=== PATIENT | female | born 1995 | race Caucasian/White ===

== ENCOUNTER 2016-11-08 09:16 | Emergency (ER) | payer BC ==
[~2016-11-08 09:16] MED LIST: BUPR75TA5 PO; FAMO-63 PO; ONDA8TAB9 PO; PARO40TA61 PO
[2016-11-08 09:18] VITALS: BP 158/90
[2016-11-08] MEDS ORDERED: NITR100C62 PO (09:46)
--- NOTE | 2016-11-08 09:47 | PHYS DOC ---
Past History Past Medical History: Anxiety, Asthma Past Surgical History: No Surgical History Alcohol Use: None Drug Use: None Adult General Chief Complaint Chief Complaint: PAIN ON URINATION HPI HPI 39-year-old female presenting to the emergency department today with polyuria dysuria. She reports symptoms over the past 3 weeks. The pain is sharp cramping sensation in the suprapubic region. She denies any vomiting or fevers. The pain is nonradiating and nonmigrating. Duration is intermittent. ROS negative for chest pain shortness of breath fevers. All other review of systems is negative unless otherwise noted in history of present illness. ED course: 20-year-old female presenting with dysuria and UTI symptoms. Urine dipstick suggestive of urinary tract infection. Patient was given Macrobid to follow-up with in 2-3 days if her symptoms did not improve. They were to return if their symptoms worsened or if they were concerned for any reason. Face -to-face discharge instructions and return precautions were given. Patient's questions were answered to their satisfaction. Patient is comfortable plan. Review of Systems Review of Systems SEE ABOVE. Allergies Allergies Allergies Coded Allergies Type Severity Reaction Last Updated Verified No Known Drug Allergies 03/06/15 No Physical Exam Physical Exam Constitutional: Well developed, well nourished, no acute distress, non-toxic appearance. [] HENT: Normocephalic, atraumatic, bilateral external ears normal, oropharynx moist, no oral exudates, nose normal. [] Eyes: PERRLA, EOMI, conjunctiva normal, no discharge. [] Neck: Normal range of motion, no tenderness, supple, no stridor. [] Cardiovascular:Heart rate regular rhythm, no murmur [] Lungs & Thorax: Bilateral breath sounds clear to auscultation [] Abdomen: Soft mild tenderness in the suprapubic region without rebound tenderness or guarding present. Negative McBurneys point. Negative Laureano sign. No ecchymosis present. Skin: Warm, dry, no erythema, no rash. [] Back: No tenderness, no CVA tenderness. [] Extremities: No tenderness, no cyanosis, no clubbing, ROM intact, no edema. [] Neurologic: Alert and oriented X 3, normal motor function, normal sensory function, no focal deficits noted. [] Psychologic: Affect normal, judgement normal, mood normal. [] EKG EKG [] Radiology/Procedures Radiology/Procedures [] Course & Med Decision Making Course & Med Decision Making Pertinent Labs and Imaging studies reviewed. (See chart for details) [] Dragon Disclaimer Dragon Disclaimer This chart was dictated in whole or in part using Voice Recognition software in a busy, high-work load, and often noisy Emergency Department environment. It may contain unintended and wholly unrecognized errors or omissions. Departure Departure: Impression: Primary Impression: UTI (urinary tract infection) Disposition: HOME, SELF-CARE Condition: STABLE Referrals: JERI BOLIVAR DO (PCP) Patient Instructions: Urinary Tract Infection Additional Instructions: Thank you for allowing us to participate in your care today. Followup with your primary care physician in 3 days if your symptoms do not improve. Call your Primary Doctor tomorrow and inform them of your visit today. If you do not have a primary care provider you can ask for a list of our primary care providers. Return to the emergency department you have any new or concerning findings. This should be evaluated by the primary care physician and any necessary consulting services for continued management within a few days after discharge. Return to emergency room if you have any new or concerning symptoms including but not limited to fever, chills, nausea, vomiting, intractable pain, any new rashes, chest pain, shortness of air, uncontrolled bleeding, difficulty breathing, and/or vision loss. Scripts Nitrofurantoin Monohyd/M-Cryst (MACROBID 100 MG CAPSULE) 100 Mg Capsule 1 CAP PO BID, #14 CAP Prov: ADONIS BRIAN MD 11/08/16 ADONIS BRIAN MD Nov 08, 2016 09:47
[2016-11-08 09:52] LABS: BILIRUBIN,URINE NEG (NEG); CLARITY,URINE TURBID; COLOR,URINE YELLOW; GLUCOSE,URINE NEG (NEG); NITRITE,URINE NEG (NEG); UROBILINOGEN,URINE 0.2 mg/dL (0.2 mg/dL)
[2016-11-08 09:57] LABS: BACTERIA,URINE FEW /HPF (0-FEW); SQUAMOUS EPITHELIAL CELL,UR OCC /LPF; WBC,URINE >40 /HPF (0-4)
== END 2016-11-08 10:00 | disposition home or self-care (01) ==
LOC: ER 09:16
DX: N39.0 Urinary tract infection, site not specified (principal); J45.909 Unspecified asthma, uncomplicated
CPT/HCPCS: 81001; 81025; 87086; 99283

== ENCOUNTER 2017-06-15 07:14 | Emergency (ER) | payer BC ==
[~2017-06-15 07:14] MED LIST changes: +NITR100C62 PO
[2017-06-15] MEDS ORDERED: PHEN100T82 PO (07:53)
[2017-06-15] MEDS ORDERED: NAPR500T8 PO (07:53)
[2017-06-15] MEDS ORDERED: CIPR250T30 PO (07:53)
--- NOTE | 2017-06-15 07:54 | PHYS DOC ---
Past History Past Medical History: Anxiety, Asthma Past Surgical History: No Surgical History Alcohol Use: None Drug Use: None Adult General Chief Complaint Chief Complaint: PAIN ON URINATION [facility] HPI 21-year-old female patient complaining of urinary frequency and dysuria for the last 5 days with suprapubic pain during urination with radiation to her back. Patient complaining of nausea and one episode of dry heaves this morning. Patient rated her pain 9/10. Patient denies fever and chills, vaginal bleeding or discharge, history of STD and previous and states she is not actually activity for the last 2 years. Review of Systems Review of Systems Constitutional: Denies fever or chills [] Eyes: Denies change in visual acuity, redness, or eye pain [] HENT: Denies nasal congestion or sore throat [] Respiratory: Denies cough or shortness of breath [] Cardiovascular: No additional information not addressed in HPI [] GI: Reports abdominal pain and nausea, denies vomiting, bloody stools or diarrhea [] : Reports dysuria and frequency Musculoskeletal: Denies back pain or joint pain [] Integument: Denies rash or skin lesions [] Neurologic: Denies headache, focal weakness or sensory changes [] Endocrine: Denies polyuria or polydipsia [] All other systems were reviewed and found to be within normal limits, except as documented in this note. Allergies Allergies Allergies Coded Allergies Type Severity Reaction Last Updated Verified No Known Drug Allergies 03/06/15 No Physical Exam Physical Exam Constitutional: Well developed, well nourished, mild distress, anxious, non- toxic appearance. [] HENT: Normocephalic, atraumatic, bilateral external ears normal, oropharynx moist, no oral exudates, nose normal. [] Eyes: PERRLA, EOMI, conjunctiva normal, no discharge. [] Neck: Normal range of motion, no tenderness, supple, no stridor. [] Cardiovascular:Heart rate regular rhythm, no murmur [] Lungs & Thorax: Bilateral breath sounds clear to auscultation [] Abdomen: Bowel sounds normal, soft, no tenderness, no masses, no pulsatile masses. [] Skin: Warm, dry, no erythema, no rash. [] Back: No tenderness, no CVA tenderness. [] Extremities: No tenderness, no cyanosis, no clubbing, ROM intact, no edema. [] Neurologic: Alert and oriented X 3, normal motor function, normal sensory function, no focal deficits noted. [] Psychologic: Anxious, judgement normal, mood normal. Patient did not want to have vaginal exam] EKG EKG [] Radiology/Procedures Radiology/Procedures [] Course & Med Decision Making Course & Med Decision Making Pertinent Labs reviewed. (See chart for details) Evaluation of patient in ER showed 21-year-old female patient complaining of urinary frequency and dysuria for 5 days with supportive with pain during episodes of urination. Patient had unremarkable physical exam except for morbid obesity. Urine dipstick showed moderate leukocytes with negative nitrate and positive blood. Patient is not sexually active for the last 2 years. Patient treated with Toradol and Cipro in ER and felt better. Patient had blood pressure of 160/102 at arrival to ER and he states sometimes her blood pressure was elevated but she never diagnosed with hypertension. Patient had family history of hypertension. Patient instructed to record her blood pressure and follow up with her primary care physician regarding treatment of possible hypertension. She instructed to increase fluid intake. Dragon Disclaimer Dragon Disclaimer This electronic medical record was generated, in whole or in part, using a voice recognition dictation system. Departure Departure: Impression: Primary Impression: Hemorrhagic cystitis Additional Impressions: Elevated systolic blood pressure reading without diagnosis of hypertension Morbid obesity Disposition: 01 HOME, SELF-CARE (At 0810) Condition: IMPROVED Referrals: JERI BOLIVAR DO (PCP) Patient Instructions: Managing Your High Blood Pressure, Urinary Tract Infection Additional Instructions: Drink plenty of liquids Record your blood pressure and follow-up with your primary care physician in 3- 5 days Return if not getting better Scripts Naproxen (NAPROXEN) 500 Mg Tablet. 1 TAB PO BID, #14 TAB 1 Refill Prov: AKBAR VYAS MD 06/15/17 Ciprofloxacin Hcl (CIPRO) 250 Mg Tablet 1 TAB PO BID, #14 TAB Prov: AKBAR VYAS MD 06/15/17 Phenazopyridine Hcl (PYRIDIUM) 100 Mg Tablet 100 MG PO BID, #10 TAB Prov: AKBAR VYAS MD 06/15/17 Problem Qualifiers AKBAR VYAS MD Jun 15, 2017 07:54
[2017-06-15] MEDS ORDERED: CIPROFLOXACIN HCL 500 MG TABLET PO ONE (08:00)
[2017-06-15] MEDS ORDERED: KETOROLAC 60 MG/2 ML VIAL. IM ONE (08:00)
[2017-06-15 08:06] LABS: BACTERIA,URINE FEW /HPF (0-FEW); BILIRUBIN,URINE NEG (NEG); CLARITY,URINE CLOUDY; COLOR,URINE YELLOW; GLUCOSE,URINE NEG (NEG); NITRITE,URINE NEG (NEG); RBC,URINE >40 /HPF (0-2); SQUAMOUS EPITHELIAL CELL,UR OCC /LPF; UROBILINOGEN,URINE 0.2 mg/dL (0.2 mg/dL); WBC,URINE >40 /HPF (0-4)
[2017-06-15 08:14] VITALS: BP 144/91
== END 2017-06-15 08:14 | disposition home or self-care (01) ==
LOC: ER 07:14
DX: N30.80 Other cystitis without hematuria (principal); R03.0 Elevated blood-pressure reading, without diagnosis of hypertension; E66.01 Morbid (severe) obesity due to excess calories; F41.9 Anxiety disorder, unspecified; J45.909 Unspecified asthma, uncomplicated
CPT/HCPCS: 81001; 87086; 96372; 99284; J1885

== ENCOUNTER 2017-06-23 19:35 | Emergency (ER) | payer BC ==
[~2017-06-23] VITALS: Ht 172.7 cm; Wt 129.0 kg
[~2017-06-23 19:35] MED LIST changes: +CIPR250T30 PO; +NAPR500T8 PO; +PHEN100T82 PO
--- NOTE | 2017-06-23 19:56 | PHYS DOC ---
Past History Past Medical History: No Pertinent History Past Surgical History: No Surgical History, Cholecystectomy Alcohol Use: None Drug Use: None Adult General Chief Complaint Chief Complaint: CHEST PAIN [facility] Patient is a female presents with complaints of chest pain. Patient has chest pain whenever she feels anxious and stressed and has had similar episodes in the past. Apparently she got a little bit stressed out at work today. Patient describes the pain being center chest and moving to the back. Review of Systems Review of Systems Constitutional: Denies fever or chills [] HENT: Denies nasal congestion or sore throat [] Respiratory: Denies cough or shortness of breath [] Cardiovascular: No additional information not addressed in HPI [] GI: Denies abdominal pain, nausea, vomiting, Musculoskeletal: Denies back pain or joint pain [] Integument: Denies rash or skin lesions [] Neurologic: Denies headache, focal weakness or sensory changes [] All other systems were reviewed and found to be within normal limits, except as documented in this note. Allergies Allergies Allergies Coded Allergies Type Severity Reaction Last Updated Verified No Known Drug Allergies 03/06/15 No Physical Exam Physical Exam Constitutional: Well developed, well nourished, no acute distress, non-toxic appearance. Pleasant and smiling during exam HENT: Normocephalic, atraumatic, Eyes: EOMI, conjunctiva normal, no discharge. [] Neck: Normal range of motion, trachea midline no stridor. No JVD Cardiovascular:Heart rate regular rhythm, no murmur, normal pulses, equal perfusion. Heart rate at the time of the examination is a 83 Lungs & Thorax: Bilateral breath sounds clear to auscultation, no tachypnea, no wheezing, no Rales, no rhonchi. Respiratory rate at the time of the examination is 12 Abdomen: Bowel sounds normal, soft, no tenderness, no masses, no pulsatile masses. [] Skin: Warm, dry, no erythema, no rash. [] Back: Normal range of motion Extremities: No tenderness, no DVT, ROM intact, no edema. [] Neurologic: Alert and oriented X 3, normal motor function, normal speech, no focal deficits noted. [] Psychologic: Affect normal, judgement normal, mood normal. [] Current Patient Data Vital Signs Vital Signs Date Time Temp Pulse Resp B/P (MAP) Pulse Ox O2 Delivery O2 Flow Rate FiO2 06/23/17 19:44 98.2 86 18 98 Room Air EKG EKG 194 sinus rhythm, 88, no STEMI[] Radiology/Procedures Radiology/Procedures [] Course & Med Decision Making Course & Med Decision Making Pertinent Labs and Imaging studies reviewed. (See chart for details) 2051 BP now 117/72, pt in nad, heart rate 76. Patient in no visible discomfort, not agitated, no tachypnea. Patient has received instructions to follow-up with her PCP tomorrow and she agrees to do so. Differential diagnoses includes but is not limited to cardiovascular disease, DC , pneumothorax, pulmonary embolism, infection, dissection, perforation. My suspicion for significant vascular, cardiac, pulmonary, infectious process resulting in the symptoms the patient presents with is very low at the time of the emergency department evaluation given the lack of physical findings and the non-concerning vital signs. The patient has remained in no distress during the whole ER stay, she has not display any signs of anxiety. Given that the patient describes this to similar previous episodes and with a normal EKG, normal exam and normal chest x-ray I believe the patient is stable for outpatient follow-up and recheck. [] Dragon Disclaimer Dragon Disclaimer This electronic medical record was generated, in whole or in part, using a voice recognition dictation system. Departure Departure: Impression: Primary Impression: Anxiety Additional Impression: Nonspecific chest pain Disposition: HOME, SELF-CARE Condition: STABLE Referrals: JERI BOLIVAR DO (PCP) Please follow with your doctor in 1 day for recheck and reevaluation and additional outpatient testing if deemed necessary, please discussed this emergency department visit. This discussed with your doctor possible need for management of anxiety issues Patient Instructions: Anxiety and Panic Attacks, [id number], Chest Pain ( Nonspecific), [id number] Problem Qualifiers Latrice RICO MD Jun 23, 2017 19:56
[2017-06-23 20:49] LABS: AMPHETAMINE/METHAMPHETAMINE NEG (NEG); BARBITURATES NEG (NEG); BENZODIAZEPINES NEG (NEG); CANNABINOIDS NEG (NEG); COCAINE NEG (NEG); METHADONE NEG (NEG); OPIATES NEG (NEG); PHENCYCLIDINE NEG (NEG)
[2017-06-23 21:00] VITALS: BP 117/72
[2017-06-23] MEDS ORDERED: LIDO:MAALOX 1:1 20 ML SINGLE DOSE PO ONE (21:15)
--- NOTE | 2017-06-23 21:47 | EKG ---
[address] [address] Test Date: 2017-06-23 Test Time: 19:41:31 Pat Name: QUITA FLYNN Department: Room: Gender: F Lan/Wan Engineer: ANGELA : 1995 Requested By: Latrice RICO Order Number: [id number] Reading MD: Cordell Lan Measurements Intervals [place] Rate: 88 P: 32 AL: 156 QRS: 59 QRSD: 102 T: 10 QT: 374 QTc: 456 Interpretive Statements SINUS RHYTHM NONSPECIFIC ST-T WAVE CHANGES. RI6.01 No previous ECG available for comparison Electronically Signed On 07-01-2017 10:54:08 HEPATOLOGY PHYSICIAN by Cordell Lan
--- NOTE | 2017-06-24 07:57 | RAD ---
Chest, 2 views, 06/23/2017: History: Chest pain The heart size and pulmonary vascularity are normal. No pulmonary artery infiltrates are seen. There is no evidence of pleural fluid. IMPRESSION: No acute cardiopulmonary abnormality is detected.
== END 2017-06-23 21:06 | disposition home or self-care (01) ==
LOC: ER 19:35
DX: F41.9 Anxiety disorder, unspecified (principal); R07.9 Chest pain, unspecified
CPT/HCPCS: 36415; 71046; 80307; 93005; 99285-25; G0479

== ENCOUNTER 2017-11-19 13:20 | Emergency (ER) | payer BC ==
[~2017-11-19] VITALS: Ht 172.7 cm; Wt 139.6 kg
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
[2017-11-19] MEDS ORDERED: CYCL-331 PO (14:22)
[2017-11-19 14:30] VITALS: BP 133/78
[2017-11-20] MEDS ORDERED: ONDA4TAB10 SL (10:20)
[2017-11-20] MEDS ORDERED: IBUP800T19 PO (10:20)
[2017-11-20] MEDS ORDERED: TRAM-48 PO (10:20)
== END 2017-11-19 14:30 | disposition home or self-care (01) ==
LOC: ER 13:20
DX: M25.512 Pain in left shoulder (principal); M25.522 Pain in left elbow; M25.532 Pain in left wrist; M54.6 Pain in thoracic spine; M43.6 Torticollis; Z91.013 Allergy to seafood; V49.49XA Driver injured in collision with other motor vehicles in traffic accident, initial encounter; Y93.I9 Activity, other involving external motion; Y99.8 Other external cause status; Y92.488 Other paved roadways as the place of occurrence of the external cause
CPT/HCPCS: 99283

== ENCOUNTER 2017-11-20 08:43 | Emergency (ER) | payer BC ==
[~2017-11-20] VITALS: Ht 172.7 cm; Wt 122.5 kg
[~2017-11-20 08:43] MED LIST changes: +CYCL-331 PO
[2017-11-20] MEDS ORDERED: ONDANSETRON ODT 4 MG TAB.RAPDIS PO ONE (09:30)
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
[2017-11-20 10:14] VITALS: BP 135/81
[2017-11-20] MEDS ORDERED: TRAM-48 PO (10:20)
[2017-11-20] MEDS ORDERED: IBUP800T19 PO (10:20)
[2017-11-20] MEDS ORDERED: ONDA4TAB10 SL (10:20)
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
[2017-11-20] MEDS ORDERED: KETOROLAC 60 MG/2 ML VIAL. IM ONE (10:30)
== END 2017-11-20 10:35 | disposition home or self-care (01) ==
LOC: ER 08:43
DX: S06.0X0A Concussion without loss of consciousness, initial encounter (principal); S29.012A Strain of muscle and tendon of back wall of thorax, initial encounter; M25.512 Pain in left shoulder; M25.511 Pain in right shoulder; E66.01 Morbid (severe) obesity due to excess calories; F41.9 Anxiety disorder, unspecified; Z68.41 Body mass index [BMI] 40.0-44.9, adult; Z91.018 Allergy to other foods; V43.52XA Car driver injured in collision with other type car in traffic accident, initial encounter; Y93.I9 Activity, other involving external motion; Y99.8 Other external cause status; Y92.488 Other paved roadways as the place of occurrence of the external cause
CPT/HCPCS: 70450; 71046; 72125; 96372; 99284; J1885; Q0162

== ENCOUNTER 2018-04-13 07:01 | Emergency (ER) | payer BC ==
[~2018-04-13] VITALS: Ht 172.7 cm; Wt 141.7 kg
[2018-04-13 07:01] VITALS: BP 149/91
[~2018-04-13 07:01] MED LIST changes: +IBUP800T19 PO; +ONDA4TAB10 SL; +TRAM-48 PO
[2018-04-13] MEDS ORDERED: D-ME118S2 PO (07:28)
[2018-04-13] MEDS ORDERED: DOXY100T PO (07:28)
[2018-04-13] MEDS ORDERED: MELO7.5T29 PO (07:28)
--- NOTE | 2018-04-13 07:29 | PHYS DOC ---
Past History Past Medical History: Anxiety Past Surgical History: Cholecystectomy, Other Smoking: Non-smoker Alcohol Use: None Drug Use: None Adult General Chief Complaint Chief Complaint: FACE PAIN HPI HPI Patient is a 22 year old female who presents with right facial pain and nasal congestion. This started approximately a week ago. Was seen by her primary care physician 2 days ago and given 4 pills, 2 in the morning 2 in the evening to take but patient does not recall what those were and received minimal relief with them. Patient reports waking up at about 1 in the morning due to congestion issues. Patient has felt chills but has not taken her temperature to know what it was. Also notes some left ear congestion. No difficulty swallowing. There is nasal congestion and drainage. No neck stiffness. Mild, nonproductive cough. [] Review of Systems Review of Systems Constitutional: Denies fever or chills [] Eyes: Denies change in visual acuity, redness, or eye pain [] HENT: See history of present illness[] Respiratory: Denies cough or shortness of breath [] Cardiovascular: No chest pain or palpitations[] GI: Denies abdominal pain, nausea, vomiting, bloody stools or diarrhea [] : Denies dysuria or hematuria [] Musculoskeletal: Denies back pain or joint pain [] Integument: Denies rash or skin lesions [] Neurologic: Denies headache, focal weakness or sensory changes [] Endocrine: Denies polyuria or polydipsia [] All other systems were reviewed and found to be within normal limits, except as documented in this note. Allergies Allergies Allergies Coded Allergies Type Severity Reaction Last Updated Verified cinnamon Allergy Unknown 11/19/17 Yes Physical Exam Physical Exam Constitutional: Well developed, well nourished, no acute distress, non-toxic appearance. [] HENT: Normocephalic, atraumatic, bilateral external ears normal left TM was blocked by cerumen, right TM was normal. No pain with tragus tug, no mastoid tenderness. There was right frontal sinus tenderness to percussion and decreased transillumination. oropharynx moist, no oral exudates, nose with clear rhinorrhea. [] Eyes: PERRLA, EOMI, conjunctiva normal, no discharge. [] Neck: Normal range of motion, no tenderness, supple, no stridor. [] Cardiovascular:Heart rate regular rhythm, no murmur [] Lungs & Thorax: Bilateral breath sounds clear to auscultation [] Abdomen: Not examined. [] Skin: Warm, dry, no erythema, no rash. [] Back: No tenderness, no CVA tenderness. [] Extremities: No tenderness, no cyanosis, no clubbing, ROM intact, no edema. [] Neurologic: Alert and oriented X 3, normal motor function, normal sensory function, no focal deficits noted. [] Psychologic: Affect normal, judgement normal, mood normal. [] EKG EKG [] Radiology/Procedures Radiology/Procedures [] Course & Med Decision Making Course & Med Decision Making Pertinent Labs and Imaging studies reviewed. (See chart for details) Medical decision making: This appears to be an upper respiratory infection along with cerumen impaction of the left ear. Patient does not have any evidence of meningismus, no mastoiditis. There may be some sinusitis present however this is commonly a viral infection. We'll treat the patient with symptomatic relief medication and an antibiotic prescription to be filled in 2 days if symptom relief is not improving the issue. Patient voiced understanding. All questions were answered.[] Dragon Disclaimer Dragon Disclaimer This electronic medical record was generated, in whole or in part, using a voice recognition dictation system. Departure Departure: Impression: Primary Impression: Upper respiratory infection Additional Impression: Sinusitis Disposition: 01 HOME, SELF-CARE Condition: GOOD Referrals: RERE ARMENDARIZ MD (PCP) Follow-up in 2 days Patient Instructions: Sinusitis, Upper Respiratory Infection, Adult Additional Instructions: Drink plenty of fluids. Follow-up with your regular doctor in 2 days. Return to the ER if worsening pain, difficulty breathing or swallowing, or any other concerns. Weight 2 days before filling the doxycycline prescription. If the symptomatic relief medicine helps you enough, do not fill the prescription at all. Otherwise take as directed. Scripts Meloxicam (MELOXICAM) 7.5 Mg Tablet 7.5 MG PO DAILY for PAIN, #20 TAB Prov: JASMYNE FRANCISCO DO 04/13/18 D-Methorphan Hb/Prometh Hcl (PROMETHAZINE-DM SYRUP) 118 Ml Syrup 5 ML PO PRN Q4HRS for CONGESTION, #120 ML Prov: JASMYNE FRANCISCO DO 04/13/18 Doxycycline Hyclate (DOXYCYCLINE HYCLATE) 100 Mg Tablet 1 TAB PO BID for sinusitis, #20 TAB Prov: JASMYNE FRANCISCO DO 04/13/18 Problem Qualifiers Primary Impression: Upper respiratory infection URI type: unspecified URI Qualified Codes: J06.9 - Acute upper respiratory infection, unspecified Additional Impression: Sinusitis Sinusitis location: frontal Chronicity: acute Recurrence: not specified as recurrent Qualified Codes: J01.10 - Acute frontal sinusitis, unspecified JASMYNE FRANCISCO DO Apr 13, 2018 07:29
== END 2018-04-13 07:32 | disposition home or self-care (01) ==
LOC: ER 07:01
DX: J06.9 Acute upper respiratory infection, unspecified (principal); Z91.018 Allergy to other foods; J01.10 Acute frontal sinusitis, unspecified; F41.9 Anxiety disorder, unspecified
CPT/HCPCS: 99283